=== PATIENT | male | born 1955 | race Caucasian/White ===

== ENCOUNTER 2016-09-29 14:24 | Outpatient (CLI) | payer OTHER ==
--- NOTE | 2016-09-29 17:26 | XRAY Report ---
TWO VIEW CHEST: 09/29/2016 CLINICAL INDICATION: Cough. Frontal and lateral views of the chest are compared to previous films of 04/01/2014. The cardiac hawk [place]ouette is within normal limits. The lungs are clear. No effusion or pneumothorax is present. IMPRESSION: NORMAL CHEST, UNCHANGED. JOB #: [id number] EXT JOB #:[id number]
== END 2016-09-29 14:25 | disposition home or self-care (01) ==
LOC: DI.N 14:24
PROVIDERS: ATTEND Internal Medicine
DX: R05 Cough (principal)
CPT/HCPCS: 71020